=== PATIENT | female | born 1990 | race Caucasian/White ===

== ENCOUNTER 2020-11-22 15:30 | Emergency (ER) | payer OTHER ==
[~2020-11-22] VITALS: Ht 170.1 cm; Wt 81.6 kg
[2020-11-22] MEDS ORDERED: AUGMENTIN 875875 MG PO (17:05)
[2020-11-22] MEDS ORDERED: TYLENOL325 M1 PO (17:05)
[2020-11-22] MEDS ORDERED: NAPROXEN250 MG PO (17:05)
== END 2020-11-22 17:24 | disposition home or self-care (01) ==
LOC: ED 15:30
DX: S81.811A Laceration without foreign body, right lower leg, initial encounter (principal); W55.42XA Struck by pig, initial encounter; Y93.89 Activity, other specified; Y92.098 Other place in other non-institutional residence as the place of occurrence of the external cause; Y99.8 Other external cause status

== ENCOUNTER → 2021-02-19 | Outpatient (CLI) | payer OTHER ==
[~2021-02-19] MED LIST: AUGMENTIN 875875 MG PO; NAPROXEN250 MG PO; TYLENOL325 M1 PO
== END | disposition home or self-care (01) ==
LOC: US 07:21
PROVIDERS: ATTEND Nurse Practitioner Family
DX: D69.6 Thrombocytopenia, unspecified (principal)

== ENCOUNTER 2022-07-03 22:10 | Emergency (ER) | payer OTHER ==
[~2022-07-03] VITALS: Ht 170.1 cm; Wt 88.5 kg
[2022-07-04] MEDS ORDERED: HYDROCODONE-AC1 EAC1 PO (00:53)
[2022-07-06] MEDS ORDERED: ZOLOFT50 MG PO (10:33)
[2022-07-06] MEDS ORDERED: DAILY VALUE1 EACH PO (10:33)
== END 2022-07-04 01:37 | disposition home or self-care (01) ==
LOC: ED 22:10
DX: S82.832A Other fracture of upper and lower end of left fibula, initial encounter for closed fracture (principal); V00.121A Fall from non-in-line roller-skates, initial encounter; Y93.51 Activity, roller skating (inline) and skateboarding; Y92.89 Other specified places as the place of occurrence of the external cause; Y99.8 Other external cause status

== ENCOUNTER → 2022-07-07 | Day surgery (SDC) | payer OTHER ==
[~2022-07-07] VITALS: Ht 170.1 cm; Wt 88.5 kg
[~2022-07-07] MED LIST changes: +DAILY VALUE1 EACH PO; +HYDROCODONE-AC1 EAC1 PO; +PERCOCET 5-3251 EACH PO; +ZOLOFT50 MG PO
[2022-07-07 07:20] VITALS: BP 112/75
[2022-07-07 08:00] LABS: HEMATOCRIT 38.4 % (37.0-47.0); MEAN CELL VOLUME 89.1 fl (81.0-99.0); MEAN CORPUSCULAR HGB 30.2 pg (27.0-31.0); MEAN CORPUSCULAR HGB CONC 33.9 g/dl (33.0-37.0); MEAN PLATELET VOLUME 13.2 fl (9.6-12.3); PLATELET COUNT AUTOMATED 164 10*3/uL (130-400); RED BLOOD COUNT 4.31 10*6/uL (4.10-5.10); RED CELL DISTRI WIDTH 12.3 % (0-14.5); WHITE BLOOD COUNT 5.7 10*3/uL (4.8-10.8)
[2022-07-07 08:10] LABS: MANUAL DIFF REFLEX YES
[2022-07-07 08:11] LABS: BASOPHILS 1 % (0-1); TOTAL CELLS COUNTED 100 #CELLS
[2022-07-07 08:12] LABS: OVALOCYTES FEW; PLATELET SUFFICIENCY NORMAL (NORMAL)
[2022-07-07 11:10] VITALS: BP 123/65
[2022-07-07 11:25] VITALS: BP 118/78
[2022-07-07 11:40] VITALS: BP 117/73
[2022-07-07 11:55] VITALS: BP 112/72
[2022-07-07 12:10] VITALS: BP 113/68
== END | disposition home or self-care (01) ==
LOC: SDC 07-06 11:00
PROVIDERS: Nurse Anesthetist, Certified Registered; ATTEND Orthopaedic Surgery
DX: S82.842A Displaced bimalleolar fracture of left lower leg, initial encounter for closed fracture (principal); F41.9 Anxiety disorder, unspecified; F32.A Depression, unspecified; Z98.890 Other specified postprocedural states; W19.XXXA Unspecified fall, initial encounter; Y93.51 Activity, roller skating (inline) and skateboarding; Y92.89 Other specified places as the place of occurrence of the external cause; Y99.8 Other external cause status

== ENCOUNTER → 2022-07-20 | Outpatient (CLI) | payer OTHER | END | disposition home or self-care (01) | LOC: ORTHO 01:10 | PROVIDERS: ATTEND Orthopaedic Surgery | DX: S82.842D Displaced bimalleolar fracture of left lower leg, subsequent encounter for closed fracture with routine healing (principal); X58.XXXD Exposure to other specified factors, subsequent encounter ==

== ENCOUNTER → 2022-08-17 | Outpatient (CLI) | payer OTHER | END | disposition home or self-care (01) | LOC: ORTHO 08:16 | PROVIDERS: ATTEND Orthopaedic Surgery | DX: S82.841D Displaced bimalleolar fracture of right lower leg, subsequent encounter for closed fracture with routine healing (principal); X58.XXXD Exposure to other specified factors, subsequent encounter ==

== ENCOUNTER → 2022-09-28 | Outpatient (CLI) | payer OTHER | END | disposition home or self-care (01) | LOC: ORTHO 01:39 | PROVIDERS: ATTEND Orthopaedic Surgery | DX: S82.842D Displaced bimalleolar fracture of left lower leg, subsequent encounter for closed fracture with routine healing (principal); X58.XXXD Exposure to other specified factors, subsequent encounter ==